=== PATIENT | female | born 1995 | race African-American/Black ===

== ENCOUNTER 2017-01-31 13:11 | Emergency (ER) | payer OTHER ==
[~2017-01-31] VITALS: Ht 160 cm; Wt 51.3 kg
[~2017-01-31 13:11] MED LIST: HYDROCODONE-AP1 EAC6 PO; IBUPROFEN 600600 M1 PO; PHENERGAN 25 MG25 M1 PO; PRENATA CHEWAB1 EACH PO; TYLENOL EXTRA500 MG PO; ZOFRAN ODT4 MG PO
[2017-01-31 14:18] LABS: CALCIUM 8.8 mg/dL (8.5-10.1); CREATININE 0.6 mg/dL (0.6-1.0); POTASSIUM 4.2 mmol/L (3.5-5.1)
[2017-01-31 14:21] LABS: ABSOLUTE NEUTROPHILS 2.6 thou/uL (1.4-8.2); BASOPHILS 0.8 % (0.0-2.0); EOSINOPHILS 0.4 % (0.0-3.0); HEMATOCRIT 32.9 % (37.0-47.0); HEMOGLOBIN 10.7 gm/dL (12.0-15.0); LYMPHOCYTES 40.9 % (24.0-44.0); MCH 27.7 pg (26.0-34.0); MCHC 32.5 g/dL (28.0-37.0); MCV 85.3 fL (80.0-100.0); MONOCYTES 7.5 % (1.0-8.0); PLATELET COUNT 278 thou/uL (150-400); POLYS 50.4 % (36.0-66.0); RBC 3.86 mil/uL (4.20-5.00); RDW 15.6 % (10.5-14.5); WBC 5.2 thou/uL (4.0-11.0)
[2017-01-31 14:23] LABS: MANUAL DIFF NO
[2017-01-31 14:25] LABS: ALBUMIN 3.6 g/dL (3.4-5.0); TOTAL BILIRUBIN 0.8 mg/dL (<0.1-1.0); TOTAL PROTEIN 7.2 g/dL (6.4-8.2)
[2017-01-31 15:31] VITALS: BP 108/62
[2017-01-31 15:35] LABS: URINE BILIRUBIN NEGATIVE (Negative); URINE BLOOD NEGATIVE (Negative); URINE COLOR YELLOW; URINE GLUCOSE-RANDOM* NEGATIVE (Negative); URINE KETONES NEGATIVE (Negative); URINE LEUKOCYTES-REFLEX NEGATIVE (Negative); URINE PROTEIN (DIPSTICK) TRACE (Negative); URINE SPECIFIC GRAVITY 1.025 (1.003-1.035)
[2017-01-31] MEDS ORDERED: TRINATE TABLET1 TAB PO (15:39)
[2017-02-02 20:12] LABS: CHLAMYDIA TRACHOMATIS-PCR Negative (Negative); NEISSERIA GONORRHEA-PCR Negative (Negative)
== END 2017-01-31 15:39 | disposition home or self-care (01) ==
LOC: ER 13:11
PROVIDERS: Physician Assistant
DX: O20.0 Threatened abortion (principal); I10 Essential (primary) hypertension; Z3A.01 Less than 8 weeks gestation of pregnancy

== ENCOUNTER 2017-02-05 09:43 | Emergency (ER) | payer OTHER ==
[~2017-02-05] VITALS: Ht 160 cm; Wt 51.3 kg
[~2017-02-05 09:43] MED LIST changes: +TRINATE TABLET1 TAB PO
[2017-02-05 10:27] LABS: ABSOLUTE NEUTROPHILS 3.4 thou/uL (1.4-8.2); BASOPHILS 0.7 % (0.0-2.0); EOSINOPHILS 0.2 % (0.0-3.0); LYMPHOCYTES 29.7 % (24.0-44.0); MCH 28.4 pg (26.0-34.0); MCHC 33.4 g/dL (28.0-37.0); MCV 85.1 fL (80.0-100.0); MONOCYTES 6.9 % (1.0-8.0); PLATELET COUNT 263 thou/uL (150-400); POLYS 62.5 % (36.0-66.0); RBC 3.52 mil/uL (4.20-5.00); RDW 16.1 % (10.5-14.5); WBC 5.5 thou/uL (4.0-11.0)
[2017-02-05 10:33] LABS: MANUAL DIFF NO
[2017-02-05 10:38] LABS: CALCIUM 8.6 mg/dL (8.5-10.1); CREATININE 0.5 mg/dL (0.6-1.0); POTASSIUM 3.7 mmol/L (3.5-5.1)
[2017-02-05 12:23] LABS: URINE BILIRUBIN NEGATIVE (Negative); URINE BLOOD NEGATIVE (Negative); URINE COLOR YELLOW; URINE GLUCOSE-RANDOM* NEGATIVE (Negative); URINE KETONES NEGATIVE (Negative); URINE LEUKOCYTES-REFLEX NEGATIVE (Negative); URINE PROTEIN (DIPSTICK) 1+ (Negative); URINE SPECIFIC GRAVITY 1.015 (1.003-1.035); URINE UROBILINOGEN 0.2 E.U./dl (0.2-1.0)
[2017-02-05 12:31] LABS: CASTS None Seen /LPF (None Seen); CRYSTALS None Seen /LPF (None Seen); SQUAMOUS 4-10 Moderate /LPF (0-3)
[2017-02-05 12:32] LABS: URINE RBC None Seen /HPF (0-2); URINE WBC-REFLEX 0-5 Rare /HPF (0-5)
[2017-02-05] MEDS ORDERED: PHENERGAN12.5 M2 RECTAL (12:47)
[2017-02-05 13:15] VITALS: BP 117/67
[2017-02-08 22:06] LABS: CHLAMYDIA TRACHOMATIS-PCR Negative (Negative); NEISSERIA GONORRHEA-PCR Negative (Negative)
== END 2017-02-05 13:16 | disposition home or self-care (01) ==
LOC: ER 09:43
PROVIDERS: Emergency Medicine
DX: O20.0 Threatened abortion (principal); I10 Essential (primary) hypertension; Z3A.01 Less than 8 weeks gestation of pregnancy

== ENCOUNTER 2017-06-28 12:04 | Emergency (ER) | payer OTHER ==
[~2017-06-28] VITALS: Ht 160 cm; Wt 51.7 kg
--- NOTE | ~2017-06-28 | EKG ---
[place] [address] [facility] [place] [address] ELECTROCARDIOGRAM REPORT Name: ANASTACIADARRELL [id number] Admission: 06/28/17 Attend Phys: Discharge: 06/28/17 Date of : [birth year] Report #: [id number] THIS REPORT FOR: //name// [facility] ED Test Date: 2017-06-28 Test Time: 13:24:03 Pat Name: DARRELL GALAVIZ Department: Room: Gender: F Caddy: : 1995 Requested By: Jasmyn Gongora Order Number: [id number] MD: Brennon Simmons Measurements Intervals Fairdealing Rate: 73 P: 41 MD: 166 QRS: 58 QRSD: 80 T: 53 QT: 357 QTc: 394 Interpretive Statements Sinus rhythm No previous ECG available for comparison Electronically Signed On 06-28-2017 23:25:11 MATERNITY NURSE by Brennon Simmons [email or web address] <ELECTRONICALLY SIGNED> By: Brennon Simmons MD 06/28/17 2325 1324 [id number] Brennon Simmons MD /EPI
[~2017-06-28 12:04] MED LIST changes: +PHENERGAN12.5 M2 RECTAL
[2017-06-28 13:09] LABS: URINE BILIRUBIN 1+ (Negative); URINE BLOOD NEGATIVE (Negative); URINE CLARITY SL CLOUDY; URINE COLOR YELLOW; URINE GLUCOSE-RANDOM* NEGATIVE (Negative); URINE KETONES TRACE (Negative); URINE LEUKOCYTES NEGATIVE (Negative); URINE NITRITE NEGATIVE (Negative); URINE PROTEIN (DIPSTICK) 2+ (Negative); URINE SPECIFIC GRAVITY >= 1.030 (1.005-1.035)
[2017-06-28 13:21] LABS: BACTERIA 1-9 Few /HPF (None Seen); CRYSTALS None Seen /LPF (None Seen); HYALINE CASTS 0-3 Few /LPF (None Seen); SQUAMOUS 0-3 Few /LPF (0-3); URINE RBC None Seen /HPF (0-2); URINE WBC 0-5 Rare /HPF (0-5)
[2017-06-28] MEDS ORDERED: DEPO-PROVE150 MG/11 IM (13:22)
[2017-06-28 13:23] LABS: ICTOTEST (BILI CONFIRMATORY) Negative (Negative)
== END 2017-06-28 14:27 | disposition home or self-care (01) ==
LOC: ER 12:04
PROVIDERS: Emergency Medicine
DX: R07.9 Chest pain, unspecified (principal); R00.2 Palpitations

== ENCOUNTER 2017-10-31 06:59 | Emergency (ER) | payer OTHER ==
[~2017-10-31] VITALS: Ht 160 cm; Wt 54.4 kg
[~2017-10-31 06:59] MED LIST changes: +DEPO-PROVE150 MG/11 IM
[2017-10-31 07:35] LABS: URINE BILIRUBIN 1+ (Negative); URINE BLOOD 1+ (Negative); URINE CLARITY CLEAR; URINE COLOR YELLOW; URINE GLUCOSE-RANDOM* NEGATIVE (Negative); URINE KETONES NEGATIVE (Negative); URINE LEUKOCYTES-REFLEX NEGATIVE (Negative); URINE NITRITE-REFLEX NEGATIVE (Negative); URINE PROTEIN (DIPSTICK) TRACE (Negative); URINE SPECIFIC GRAVITY >= 1.030 (1.005-1.035); URINE UROBILINOGEN 0.2 E.U./dl (0.2-1.0)
[2017-10-31 07:40] LABS: ICTOTEST (BILI CONFIRMATORY) Negative (Negative)
[2017-10-31 07:48] LABS: HEMATOCRIT 30.5 % (37.0-47.0); MCH 29.3 pg (26.0-34.0); MCHC 32.8 g/dL (28.0-37.0); MCV 89.5 fL (80.0-100.0); RBC 3.41 mil/uL (4.20-5.00); RDW 13.5 % (10.5-14.5); WBC 5.7 thou/uL (4.0-11.0)
[2017-10-31 07:49] LABS: MUCUS >6 Heavy strn/LPF (None Seen); SQUAMOUS >10 Many /LPF (0-3)
[2017-10-31 07:50] LABS: BACTERIA-REFLEX 1-9 Few /HPF (None Seen); CASTS None Seen /LPF (None Seen); CRYSTALS None Seen /LPF (None Seen); URINE RBC 3-10 Few /HPF (0-2); URINE WBC-REFLEX >25 Many /HPF (0-5)
[2017-10-31 07:53] LABS: CALCIUM 8.8 mg/dL (8.5-10.1); CREATININE 0.7 mg/dL (0.6-1.0); POTASSIUM 3.7 mmol/L (3.5-5.1)
[2017-10-31 08:52] VITALS: BP 145/104
== END 2017-10-31 09:00 | disposition home or self-care (01) ==
LOC: ER 06:59
PROVIDERS: Emergency Medicine
DX: O03.9 Complete or unspecified spontaneous abortion without complication (principal); Z3A.01 Less than 8 weeks gestation of pregnancy

== ENCOUNTER 2018-01-05 09:43 | Emergency (ER) | payer OTHER ==
[~2018-01-05] VITALS: Ht 160 cm; Wt 54.4 kg
[2018-01-05] MEDS ORDERED: MOBIC15 MG PO (10:04)
[2018-01-05] MEDS ORDERED: PENICILLIN V P500 MG PO (10:04)
[2018-01-05 10:19] VITALS: BP 135/87
== END 2018-01-05 10:20 | disposition home or self-care (01) ==
LOC: ER 09:43
DX: K02.9 Dental caries, unspecified (principal)

== ENCOUNTER 2018-05-20 23:08 | Emergency (ER) | payer OTHER ==
[~2018-05-20] VITALS: Ht 160 cm; Wt 58.1 kg
[~2018-05-20 23:08] MED LIST changes: +MOBIC15 MG PO; +PENICILLIN V P500 MG PO
[2018-05-20 23:49] LABS: URINE BILIRUBIN NEGATIVE (Negative); URINE BLOOD NEGATIVE (Negative); URINE CLARITY CLEAR; URINE COLOR YELLOW; URINE GLUCOSE-RANDOM* NEGATIVE (Negative); URINE KETONES NEGATIVE (Negative); URINE LEUKOCYTES-REFLEX NEGATIVE (Negative); URINE NITRITE-REFLEX NEGATIVE (Negative); URINE PROTEIN (DIPSTICK) NEGATIVE (Negative); URINE SPECIFIC GRAVITY >= 1.030 (1.005-1.035); URINE UROBILINOGEN 0.2 E.U./dl (0.2-1.0)
[2018-05-20 23:58] LABS: HEMATOCRIT 28.8 % (37.0-47.0); HEMOGLOBIN 9.3 gm/dL (12.0-15.0); MCH 27.2 pg (26.0-34.0); MCHC 32.4 g/dL (28.0-37.0); RBC 3.43 mil/uL (4.20-5.00); RDW 15.9 % (10.5-14.5); WBC 6.8 thou/uL (4.0-11.0)
[2018-05-21 00:03] LABS: CALCIUM 8.8 mg/dL (8.5-10.1); CREATININE 0.5 mg/dL (0.6-1.0); POTASSIUM 3.7 mmol/L (3.5-5.1)
[2018-05-21 00:08] LABS: ALBUMIN 3.6 g/dL (3.4-5.0); TOTAL BILIRUBIN 0.4 mg/dL (<0.1-1.0); TOTAL PROTEIN 7.4 g/dL (6.4-8.2)
[2018-05-21 01:27] VITALS: BP 119/70
== END 2018-05-21 01:27 | disposition home or self-care (01) ==
LOC: ER 23:08
PROVIDERS: Emergency Medicine
DX: O20.0 Threatened abortion (principal); Z3A.00 Weeks of gestation of pregnancy not specified

== ENCOUNTER 2018-05-24 14:01 | Emergency (ER) | payer OTHER ==
[~2018-05-24] VITALS: Ht 160 cm; Wt 59.0 kg
[2018-05-24 14:21] LABS: URINE BILIRUBIN NEGATIVE (Negative); URINE BLOOD NEGATIVE (Negative); URINE CLARITY CLEAR; URINE COLOR YELLOW; URINE GLUCOSE-RANDOM* NEGATIVE (Negative); URINE KETONES NEGATIVE (Negative); URINE LEUKOCYTES-REFLEX NEGATIVE (Negative); URINE NITRITE-REFLEX NEGATIVE (Negative); URINE PROTEIN (DIPSTICK) NEGATIVE (Negative); URINE SPECIFIC GRAVITY 1.025 (1.005-1.035); URINE UROBILINOGEN 0.2 E.U./dl (0.2-1.0)
[2018-05-24 15:12] LABS: ABSOLUTE NEUTROPHILS 4.6 thou/uL (1.4-8.2); BASOPHILS 0.7 % (0.0-2.0); EOSINOPHILS 0.2 % (0.0-3.0); HEMATOCRIT 32.4 % (37.0-47.0); HEMOGLOBIN 10.6 gm/dL (12.0-15.0); LYMPHOCYTES 29.3 % (24.0-44.0); MCH 27.2 pg (26.0-34.0); MCHC 32.8 g/dL (28.0-37.0); MCV 83.1 fL (80.0-100.0); MONOCYTES 8.1 % (1.0-8.0); PLATELET COUNT 308 thou/uL (150-400); POLYS 61.7 % (36.0-66.0); RDW 15.5 % (10.5-14.5); WBC 7.5 thou/uL (4.0-11.0)
[2018-05-24 15:20] LABS: CALCIUM 9.5 mg/dL (8.5-10.1); CREATININE 0.5 mg/dL (0.6-1.0); POTASSIUM 3.4 mmol/L (3.5-5.1)
[2018-05-24 15:26] LABS: ALBUMIN 4.2 g/dL (3.4-5.0); TOTAL BILIRUBIN 0.7 mg/dL (<0.1-1.0); TOTAL PROTEIN 8.6 g/dL (6.4-8.2)
[2018-05-24] MEDS ORDERED: PHENERGAN25 M1 RECTAL (15:49)
[2018-05-24 16:14] VITALS: BP 110/78
== END 2018-05-24 16:15 | disposition home or self-care (01) ==
LOC: ER 14:01
PROVIDERS: Physician Assistant
DX: O21.8 Other vomiting complicating pregnancy (principal); R10.13 Epigastric pain; Z3A.10 10 weeks gestation of pregnancy

== ENCOUNTER 2018-06-02 13:54 | Emergency (ER) | payer OTHER ==
[~2018-06-02] VITALS: Ht 160 cm; Wt 54.4 kg
[~2018-06-02 13:54] MED LIST changes: +PHENERGAN25 M1 RECTAL
[2018-06-02 14:54] LABS: CALCIUM 9.6 mg/dL (8.5-10.1); CREATININE 0.5 mg/dL (0.6-1.0); POTASSIUM 3.3 mmol/L (3.5-5.1)
[2018-06-02 15:46] LABS: URINE BILIRUBIN NEGATIVE (Negative); URINE BLOOD NEGATIVE (Negative); URINE CLARITY CLEAR; URINE COLOR YELLOW; URINE GLUCOSE-RANDOM* NEGATIVE (Negative); URINE KETONES TRACE (Negative); URINE LEUKOCYTES-REFLEX NEGATIVE (Negative); URINE NITRITE-REFLEX NEGATIVE (Negative); URINE PROTEIN (DIPSTICK) NEGATIVE (Negative); URINE SPECIFIC GRAVITY <= 1.005 (1.005-1.035); URINE UROBILINOGEN 0.2 E.U./dl (0.2-1.0)
[2018-06-02] MEDS ORDERED: ZOFRAN ODT4 MG PO (16:53)
[2018-06-02] MEDS ORDERED: DICLEGIS DR 101 EACH PO (16:53)
[2018-06-02] MEDS ORDERED: PEPCID40 MG PO (16:54)
[2018-06-02 17:05] VITALS: BP 110/71
== END 2018-06-02 17:05 | disposition home or self-care (01) ==
LOC: ER 13:54
PROVIDERS: Emergency Medicine
DX: O21.8 Other vomiting complicating pregnancy (principal); R10.30 Lower abdominal pain, unspecified; R30.0 Dysuria; M79.10 Myalgia, unspecified site; Z3A.11 11 weeks gestation of pregnancy

== ENCOUNTER 2018-06-27 17:51 | Emergency (ER) | payer OTHER ==
[~2018-06-27] VITALS: Ht 160 cm; Wt 49.9 kg
[~2018-06-27 17:51] MED LIST changes: +DICLEGIS DR 101 EACH PO; +PEPCID40 MG PO
[2018-06-27 18:27] LABS: ABSOLUTE NEUTROPHILS 8.7 thou/uL (1.4-8.2); BASOPHILS 0.5 % (0.0-2.0); HEMOGLOBIN 10.7 gm/dL (12.0-15.0); LYMPHOCYTES 11.5 % (24.0-44.0); MCH 27.3 pg (26.0-34.0); MCHC 32.5 g/dL (28.0-37.0); MONOCYTES 5.5 % (1.0-8.0); PLATELET COUNT 290 thou/uL (150-400); POLYS 82.5 % (36.0-66.0); RBC 3.92 mil/uL (4.20-5.00); RDW 15.4 % (10.5-14.5); WBC 10.6 thou/uL (4.0-11.0)
[2018-06-27 18:36] LABS: CALCIUM 9.8 mg/dL (8.5-10.1); CREATININE 0.5 mg/dL (0.6-1.0); POTASSIUM 3.3 mmol/L (3.5-5.1)
[2018-06-27 18:42] LABS: ALBUMIN 3.5 g/dL (3.4-5.0); TOTAL BILIRUBIN 0.6 mg/dL (<0.1-1.0); TOTAL PROTEIN 8.1 g/dL (6.4-8.2)
[2018-06-27 20:52] LABS: URINE CLARITY CLEAR; URINE COLOR YELLOW; URINE GLUCOSE-RANDOM* NEGATIVE (Negative); URINE PROTEIN (DIPSTICK) 1+ (Negative); URINE SPECIFIC GRAVITY > 1.030 (1.005-1.035)
[2018-06-27 20:53] LABS: ICTOTEST (BILI CONFIRMATORY) Negative (Negative); URINE BILIRUBIN NEGATIVE (Negative); URINE BLOOD NEGATIVE (Negative); URINE KETONES 3+ (Negative); URINE LEUKOCYTES-REFLEX NEGATIVE (Negative); URINE NITRITE-REFLEX NEGATIVE (Negative); URINE UROBILINOGEN 0.2 E.U./dl (0.2-1.0)
[2018-06-27 20:54] LABS: URINE REDUCING SUBSTANCE NEGATIVE
[2018-06-27 21:03] LABS: CASTS None Seen /LPF (None Seen); CRYSTALS None Seen /LPF (None Seen); SQUAMOUS 0-3 Few /LPF (0-3)
[2018-06-27 21:04] LABS: BACTERIA-REFLEX 1-9 Few /HPF (None Seen); URINE RBC None Seen /HPF (0-2); URINE WBC-REFLEX None Seen /HPF (0-5)
[2018-06-27 23:06] VITALS: BP 121/79
== END 2018-06-27 23:00 | disposition short-term general hospital (02) ==
LOC: ER 17:51
PROVIDERS: Emergency Medicine
DX: O21.0 Mild hyperemesis gravidarum (principal); O99.282 Endocrine, nutritional and metabolic diseases complicating pregnancy, second trimester; E86.0 Dehydration; Z3A.15 15 weeks gestation of pregnancy

== ENCOUNTER 2018-08-23 22:28 | Emergency (ER) | payer OTHER ==
[~2018-08-23] VITALS: Ht 160 cm; Wt 54.4 kg
[2018-08-23 23:16] LABS: BASOPHILS 0.4 % (0.0-2.0); EOSINOPHILS 0.4 % (0.0-3.0); HEMATOCRIT 29.3 % (37.0-47.0); HEMOGLOBIN 9.4 gm/dL (12.0-15.0); LYMPHOCYTES 18.8 % (24.0-44.0); MCH 26.6 pg (26.0-34.0); MCHC 32.1 g/dL (28.0-37.0); MONOCYTES 7.8 % (1.0-8.0); PLATELET COUNT 277 thou/uL (150-400); POLYS 72.6 % (36.0-66.0); RBC 3.53 mil/uL (4.20-5.00); RDW 15.5 % (10.5-14.5); WBC 9.6 thou/uL (4.0-11.0)
[2018-08-23 23:26] LABS: CALCIUM 8.6 mg/dL (8.5-10.1); CREATININE 0.3 mg/dL (0.6-1.0); POTASSIUM 3.6 mmol/L (3.5-5.1)
[2018-08-23 23:28] LABS: APTT 23.7 Seconds (24.5-32.8); PROTIME 10.4 Seconds (9.3-11.4)
[2018-08-23 23:32] LABS: TOTAL BILIRUBIN 0.5 mg/dL (<0.1-1.0); TOTAL PROTEIN 6.6 g/dL (6.4-8.2)
[2018-08-23 23:50] LABS: URINE BILIRUBIN NEGATIVE (Negative); URINE BLOOD NEGATIVE (Negative); URINE CLARITY CLEAR; URINE COLOR YELLOW; URINE GLUCOSE-RANDOM* NEGATIVE (Negative); URINE KETONES TRACE (Negative); URINE LEUKOCYTES-REFLEX TRACE (Negative); URINE NITRITE-REFLEX NEGATIVE (Negative); URINE PROTEIN (DIPSTICK) NEGATIVE (Negative); URINE UROBILINOGEN 0.2 E.U./dl (0.2-1.0)
[2018-08-24] MEDS ORDERED: PROMS25 WY RECTAL (00:25)
[2018-08-24] MEDS ORDERED: ZOFRAN ODT4 MG DISSOLVE (00:25)
[2018-08-24] MEDS ORDERED: PEPCID20 MG PO (00:34)
[2018-08-24 01:08] VITALS: BP 127/86
== END 2018-08-24 01:09 | disposition home or self-care (01) ==
LOC: ER 22:28
PROVIDERS: Emergency Medicine
DX: O21.1 Hyperemesis gravidarum with metabolic disturbance (principal); O13.2 Gestational [pregnancy-induced] hypertension without significant proteinuria, second trimester; K92.0 Hematemesis; E86.0 Dehydration; K21.9 Gastro-esophageal reflux disease without esophagitis; Z3A.21 21 weeks gestation of pregnancy

== ENCOUNTER 2018-11-15 10:19 | Emergency (ER) | payer OTHER ==
[~2018-11-15] VITALS: Ht 160 cm; Wt 67.1 kg
[~2018-11-15 10:19] MED LIST changes: +PEPCID20 MG PO; +PROMS25 WY RECTAL; +ZOFRAN ODT4 MG DISSOLVE
[2018-11-15] MEDS ORDERED: VITAFOL-OB+DHA1 EACH PO (10:46)
[2018-11-15 11:16] VITALS: BP 136/90
== END 2018-11-15 11:17 | disposition short-term general hospital (02) ==
LOC: ER 10:19
DX: O26.893 Other specified pregnancy related conditions, third trimester (principal); R10.2 Pelvic and perineal pain; R10.30 Lower abdominal pain, unspecified; Z3A.32 32 weeks gestation of pregnancy

== ENCOUNTER 2019-03-02 16:31 | Emergency (ER) | payer OTHER ==
[~2019-03-02] VITALS: Ht 160 cm; Wt 58.1 kg
[~2019-03-02 16:31] MED LIST changes: +VITAFOL-OB+DHA1 EACH PO
[2019-03-02 16:46] LABS: URINE BILIRUBIN NEGATIVE (Negative); URINE BLOOD NEGATIVE (Negative); URINE CLARITY CLOUDY; URINE COLOR YELLOW; URINE GLUCOSE-RANDOM* NEGATIVE (Negative); URINE KETONES NEGATIVE (Negative); URINE LEUKOCYTES 1+ (Negative); URINE NITRITE NEGATIVE (Negative); URINE PROTEIN (DIPSTICK) TRACE (Negative)
[2019-03-02 16:53] LABS: SQUAMOUS >10 Many /LPF (0-3)
[2019-03-02 16:54] LABS: BACTERIA >30 Many /HPF (None Seen); CASTS None Seen /LPF (None Seen); CRYSTALS None Seen /LPF (None Seen); URINE RBC None Seen /HPF (0-2); URINE WBC 0-5 Rare /HPF (0-5)
[2019-03-02] MEDS ORDERED: CLARITIN-D 121 EAC1 PO (18:05)
[2019-03-02] MEDS ORDERED: TESSALON PERLE100 MG PO (18:05)
[2019-03-02] MEDS ORDERED: IBUPROFEN 600600 M1 PO (18:05)
[2019-03-02 18:44] VITALS: BP 136/92
== END 2019-03-02 18:52 | disposition home or self-care (01) ==
LOC: ER 16:31
PROVIDERS: Emergency Medicine
DX: B34.9 Viral infection, unspecified (principal); I10 Essential (primary) hypertension